=== PATIENT | female | born 2000 | race Two or more races ===

== ENCOUNTER 2023-07-04 11:25 | Emergency (ER) | payer OTHER ==
[~2023-07-04] VITALS: Ht 177.8 cm; Wt 158.8 kg
[2023-07-04 11:30] VITALS: BP 110/74; TEMP 98
[2023-07-04 12:08] VITALS: O2SAT 98
== END 2023-07-04 12:10 | disposition home or self-care (01) ==
LOC: ER 11:25
DX: F41.9 Anxiety disorder, unspecified (principal); K08.89 Other specified disorders of teeth and supporting structures; M54.50 Low back pain, unspecified